=== PATIENT | female | born 1985 | race Caucasian/White ===

== ENCOUNTER 2017-11-01 21:12 | Inpatient (IN) ==
[2017-11-01] MEDS ORDERED: LACTATED RINGERS 1,000 ML IV ONE (21:47)
[2017-11-01] MEDS ORDERED: ONDANSETRON 4 MG/2 ML VIAL IV ONE (21:47)
--- NOTE | 2017-11-01 21:49 | Emergency Department Note ---
Abdominal Pain HPI - General Chief Complaint: Abdominal Pain Stated Complaint: abdominal pain Time Seen by Provider: 11/01/17 21:44 Source: patient Limitations: no limitations - History of Present Illness HPI Narrative: This patient has not had nausea vomiting diarrhea abdominal pain for last 3 days. She does not really feel flulike. She has had a lot of vomiting. Diarrhea is watery. Abdominal pain is crampy. - Related Data Home Medications Medication Instructions Recorded Confirmed Methadone [Dolophine] 5 mg PO TID 11/01/17 11/02/17 Allergies Allergy/AdvReac Type Severity Reaction Status Date / Time Penicillins Allergy Mild Rash Verified 11/02/17 06:36 Review of Systems All systems ED: reviewed and negative except as stated. Abdominal Pain PMH - Past Medical History Medical history: Reports: no medical history - Social History Smoking status: Current every day smoker Physical Exam Limitations: no limitations General appearance: alert Head: atraumatic Eye: Present: normal appearance ENT: normal exam Neck: Present: normal inspection Chest: Present: normal inspection Respiratory: Present: normal lung sounds bilaterally Cardiovascular: Present: regular rate, normal rhythm, normal heart sounds Abdominal: Present: soft, tenderness. Absent: distention, guarding Abdominal tenderness: Present: diffuse, mild Neurological: Present: alert Psychiatric: Present: normal affect, normal mood Skin: Present: warm, dry, intact Course Vital Signs Temperature 98 F 11/01/17 21:13 Pulse Rate 104 H 11/01/17 21:13 Respiratory Rate 20 11/01/17 21:13 Blood Pressure 122/85 11/01/17 21:13 Pulse Oximetry (%) 99 11/01/17 21:13 Temperature 97.4 F 11/02/17 04:00 Pulse Rate 79 11/02/17 04:00 Respiratory Rate 18 11/02/17 04:00 Blood Pressure 110/65 11/02/17 04:00 Pulse Oximetry (%) 97 11/02/17 04:00 Abdominal Pain - MDM Narrative Medical decision making narrative: Patient's gallbladder ultrasound is consistent with a calculus cholecystitis. Common bile duct was normal in size. She will be admitted to Dr. Christian Lin the surgeon. - Lab Data Lab results reviewed: Yes I reviewed the patient's lab results. Result diagrams: 11/02/17 05:00 11/01/17 21:59 Lab Results 0311/01/17 11/01/17 Range/Units 21:43 21:59 21:59 WBC 7.4 (4.5-11.0) K/mcL RBC 5.16 (4.00-5.20) M/mcL Hgb 12.9 (12.0-15.0) g/dL Hct 39.6 (36.0-48.0) % MCV 76.8 L (80.0-100.0) fL MCH 24.9 L (26.0-34.0) pg MCHC 32.5 (31.0-36.0) g/dL RDW 13.2 (11.5-14.5) % Plt Count 104 L (140-440) K/mcL MPV 9.6 (7.4-10.4) fL Gran % 33.6 L (38.0-78.0) % Lymph % (Auto) 47.4 (15.5-49.0) % [place] % (Auto) 15.1 H (1.0-12.0) % Eos % (Auto) 3.2 (0.0-7.0) % Baso % (Auto) 0.7 (0.0-2.0) % Gran # 2.5 (1.8-8.0) K/mcL Lymph # (Auto) 3.5 (1.5-4.8) K/mcL [place] # (Auto) 1.1 H (0.1-0.9) K/mcL Eos # (Auto) 0.2 (0.0-0.7) K/mcL Baso # (Auto) 0.1 (0.0-0.3) K/mcL Differential Comment (()) PT (11.9-14.5) sec INR (0.9-1.1) Sodium 131 L (133-145) mmol/L Potassium 3.2 L (3.3-5.1) mmol/L Chloride 96 (96-108) mmol/L Carbon Dioxide 23 (22-30) mmol/L Anion Gap 12.0 (8-16) BUN 6 (6-20) mg/dl Creatinine 0.7 (0.6-1.1) mg/dl GFR Calculation 114 Glucose 114 H (70-105) mg/dL Calcium 7.7 L (8.6-10.4) mg/dl Total Bilirubin 6.0 H (0.0-1.0) mg/dL AST 1420 H (0-37) U/l ALT 1865 H (0-40) U/l Alkaline Phosphatase 428 H (39-117) U/L Total Protein 6.0 (5.9-8.4) gm/dL Albumin 3.0 L (3.2-5.2) gm/dL Globulin 3.0 (2.2-3.7) gm/dL Albumin/Globulin Ratio 1.0 (1.0-2.3) Lipase 20 (7-60) U/L Urine Color [place] Urine Appearance Cloudy Urine pH 5.0 (5.0-9.0) Ur Specific [place] 1.024 (1.000-1.035) Urine Protein 100 A (NEG) mg/dL Urine Glucose (UA) 50 A (NEG) mg/dL Urine Ketones Neg (NEG) mg/dL Urine Occult Blood >=1.0 A (<0.03) mg/dL Urine Nitrate Neg (NEG) Urine Bilirubin 4.0 A (NEG) mg/dL Urine Ictotest Pos A (NEG) Urine Urobilinogen 4.0 A (NEG) mg/dL Ur Leukocyte Esterase Neg (NEG) /uL Urine RBC 27 H (0-1) /hpf Urine WBC 32 H (0-4) /hpf Ur Squamous Epith Cells 30 H (0-4) /hpf Calcium Oxalate Crystal Few A (0) /hpf Urine Bacteria Mod A (0) /hpf Urine Mucus Many A (0) /hpf Ur Culture Indicated? No Influenza A (Rapid) Influenza B (Rapid) 11/01/17 11/01/17 Range/Units 21:59 22:44 WBC (4.5-11.0) K/mcL RBC (4.00-5.20) M/mcL Hgb (12.0-15.0) g/dL Hct (36.0-48.0) % MCV (80.0-100.0) fL MCH (26.0-34.0) pg MCHC (31.0-36.0) g/dL RDW (11.5-14.5) % Plt Count (140-440) K/mcL MPV (7.4-10.4) fL Gran % (38.0-78.0) % Lymph % (Auto) (15.5-49.0) % [place] % (Auto) (1.0-12.0) % Eos % (Auto) (0.0-7.0) % Baso % (Auto) (0.0-2.0) % Gran # (1.8-8.0) K/mcL Lymph # (Auto) (1.5-4.8) K/mcL [place] # (Auto) (0.1-0.9) K/mcL Eos # (Auto) (0.0-0.7) K/mcL Baso # (Auto) (0.0-0.3) K/mcL Differential Comment (()) PT 16.5 H (11.9-14.5) sec INR 1.3 H (0.9-1.1) Sodium (133-145) mmol/L Potassium (3.3-5.1) mmol/L Chloride (96-108) mmol/L Carbon Dioxide (22-30) mmol/L Anion Gap (8-16) BUN (6-20) mg/dl Creatinine (0.6-1.1) mg/dl GFR Calculation Glucose (70-105) mg/dL Calcium (8.6-10.4) mg/dl Total Bilirubin (0.0-1.0) mg/dL AST (0-37) U/l ALT (0-40) U/l Alkaline Phosphatase (39-117) U/L Total Protein (5.9-8.4) gm/dL Albumin (3.2-5.2) gm/dL Globulin (2.2-3.7) gm/dL Albumin/Globulin Ratio (1.0-2.3) Lipase (7-60) U/L Urine Color Urine Appearance Urine pH (5.0-9.0) Ur Specific [place] (1.000-1.035) Urine Protein (NEG) mg/dL Urine Glucose (UA) (NEG) mg/dL Urine Ketones (NEG) mg/dL Urine Occult Blood (<0.03) mg/dL Urine Nitrate (NEG) Urine Bilirubin (NEG) mg/dL Urine Ictotest (NEG) Urine Urobilinogen (NEG) mg/dL Ur Leukocyte Esterase (NEG) /uL Urine RBC (0-1) /hpf Urine WBC (0-4) /hpf Ur Squamous Epith Cells (0-4) /hpf Calcium Oxalate Crystal (0) /hpf Urine Bacteria (0) /hpf Urine Mucus (0) /hpf Ur Culture Indicated? Influenza A (Rapid) Presumed negative Influenza B (Rapid) Presumed negative - Radiology Data Radiology results reviewed: Yes I reviewed the patient's radiology results. Disposition Pt seen by WINDOWS SYSTEM[employer] ENGINEER/PA only: No Clinical Impression: Cholecystitis Disposition: Xfer As Inpt ([facility]) Condition: Good
[2017-11-01] MEDS: fentaNYL 100 MCG/2 ML VIAL IV PRN (22:23)
[2017-11-01 22:25] LABS: Appearance,Urine CLOUDY; Bacteria,Urine MOD /hpf (0); Calcium Oxalate Crystals,Urine FEW /hpf (0); Color,Urine AMBER; Glucose,Urine (UA) 50 mg/dL (NEG); Ictotest,Urine POS (NEG); Leukocyte Esterase,Urine NEG /uL (NEG); Mucus,Urine MANY /hpf (0); Protein,Urine 100 mg/dL (NEG); Specific Gravity,Urine 1.024 (1.000-1.035); Urine Blood >=1.0 mg/dL (<0.03); Urine RBC 27 /hpf (0-1); Urine Squamous Epithelial Cell 30 /hpf (0-4); Urine WBC 32 /hpf (0-4)
[2017-11-01 22:56] LABS: Basophils # (Auto) 0.1 K/mcL (0.0-0.3); Basophils % (Auto) 0.7 % (0.0-2.0); Eosinophils # (Auto) 0.2 K/mcL (0.0-0.7); Eosinophils % (Auto) 3.2 % (0.0-7.0); Granulocytes % (Auto) 33.6 % (38.0-78.0); Lymphocytes # (Auto) 3.5 K/mcL (1.5-4.8); Lymphocytes % (Auto) 47.4 % (15.5-49.0); Mean Cell Volume 76.8 fL (80.0-100.0); Mean Corpuscular HGB Conc 32.5 g/dL (31.0-36.0); Mean Corpuscular Hemoglobin 24.9 pg (26.0-34.0); Monocytes # (Auto) 1.1 K/mcL (0.1-0.9); Monocytes % (Auto) 15.1 % (1.0-12.0); Platelet Count 104 K/mcL (140-440); RBC 5.16 M/mcL (4.00-5.20); Red Cell Distribution Width 13.2 % (11.5-14.5)
[2017-11-01 23:15] LABS: Alkaline Phosphatase 428 U/L (39-117); Blood Urea Nitrogen 6 mg/dl (6-20); Lipase 20 U/L (7-60)
[2017-11-01 23:25] LABS: ALT/SGPT 1865 U/l (0-40)
[2017-11-02] MEDS: fentaNYL 100 MCG/2 ML VIAL IV PRN
[2017-11-02] MEDS ORDERED: ONDANSETRON 4 MG/2 ML VIAL IV PRN (01:36)
[2017-11-02] MEDS: LACTATED RINGERS 1,000 ML IV SCH ×2 (02:42→08:52)
[2017-11-02] MEDS ORDERED: HYDROmorphone 2 MG/ML VIAL ONE ×2 (03:18→06:11)
[2017-11-02] MEDS ORDERED: LEVOFLOXACIN 750 MG/150 ML BAG IV ONE (03:23)
[2017-11-02] MEDS: LEVOFLOXACIN 750 MG/150 ML BAG IV SCH (04:02)
--- NOTE | 2017-11-02 06:11 | Ultrasound Report ---
CLINICAL INFORMATION: Abdominal pain. Elevated bilirubin COMPARISON: Abdominal CT from 02/03/2017. FINDINGS: Liver is normal in size, configuration and echotexture without focal lesion. There is massive diffuse thickening (19 mm) of the gallbladder wall, with focal tenderness or pericholecystic fluid. No stones identified. Common bile duct is normal - 4 mm. Pancreas is unremarkable. No free fluid IMPRESSION: Severe acalculous cholecystitis Interpreted and Authenticated by: Ziggy Asher 11/02/17
--- NOTE | 2017-11-02 06:21 | XRay Report ---
CLINICAL INFORMATION: Preop COMPARISON: None. FINDINGS: The heart size, mediastinum and pulmonary vessels are unremarkable. The lungs are clear. There are no effusions. The bones and soft tissues are within normal limits. IMPRESSION: Normal chest. Interpreted and Authenticated by: Ziggy Asher 11/02/17
[2017-11-02 06:40] LABS: Basophils # (Auto) 0 K/mcL (0.0-0.3); Basophils % (Auto) 0.7 % (0.0-2.0); Eosinophils # (Auto) 0.4 K/mcL (0.0-0.7); Eosinophils % (Auto) 5.8 % (0.0-7.0); Granulocytes % (Auto) 29.9 % (38.0-78.0); Lymphocytes # (Auto) 3.3 K/mcL (1.5-4.8); Lymphocytes % (Auto) 50.6 % (15.5-49.0); Mean Cell Volume 77.7 fL (80.0-100.0); Mean Corpuscular HGB Conc 34.7 g/dL (31.0-36.0); Mean Corpuscular Hemoglobin 26.9 pg (26.0-34.0); Monocytes # (Auto) 0.8 K/mcL (0.1-0.9); Platelet Count 88 K/mcL (140-440); RBC 4.71 M/mcL (4.00-5.20); Red Cell Distribution Width 14.4 % (11.5-14.5)
[2017-11-02 07:04] LABS: Albumin 2.6 gm/dL (3.2-5.2); Albumin/Globulin Ratio 0.9 (1.0-2.3); Alkaline Phosphatase 376 U/L (39-117); Bilirubin,Direct 4.3 mg/dL (0.0-0.3); Blood Urea Nitrogen 5 mg/dl (6-20); Gamma Glutamyl Transpeptidase 165 U/L (5-36); Uric Acid 3.7 mg/dL (2.5-8.0)
[2017-11-02 07:18] LABS: ALT/SGPT 1675 U/l (0-40)
[2017-11-02] MEDS: HYDROmorphone 2 MG/ML VIAL IV PRN ×5 (08:53→22:21)
--- NOTE | 2017-11-02 09:28 | General Surg History&Physical ---
History of Present Illness Patient information: Note initiated : 11/02/17 at 9:24 am Service Date, if different from initiated Date: [] Patient: Lori Rabago 32 y/o F admitted on 11/02/17 for abdominal pain. Chief Complaint: [Abdominal pain nausea and vomiting] HPI: Ms. Rabago is a 32 year old F who presents with a 5 day history of pain in her upper abdomen. This is primarily epigastrium and right upper quadrant.. She had some diarrhea. She states that she had large volume of emesis 7 or 8 times during the night. She has noticed that her urine has been dark for the past 5 days. Her stool color has been normal and she specifically denies light colored based stools. She has not had similar discomfort in the past. When seen in the emergency room she had a tender rigid abdomen with an ultrasound that shows marked thickening of the gallbladder with pericholecystic fluid. There were no stones noted. Her LFTs are also significantly elevated with transaminases being elevated out of proportion to the alkaline phosphatase suggesting that she may have some primary liver disease. Her bilirubin is 6. Ultrasound suggests that her common bile duct is only 4 mm and her lipase is normal. Patient initially denied drug use but then with further questioning she admits to a prior history of heroin use and more recent history of amphetamine. Use. She is presently on maintenance methadone. Review of Systems - Constitutional anorexia, fatigue - EENT Nose, mouth and throat: bleeding gums, dental pain, mouth lesions - Cardiovascular no chest pain with activity, no dyspnea on exertion, no irregular heart rhythm, no paroxysmal nocturnal dyspnea, no rapid heart rate - Respiratory no cough, no dyspnea on exertion, no wheezing, no pain with cough - Gastrointestinal abdominal pain, bloating, heartburn, nausea, vomiting - Genitourinary Genitourinary: no dysuria, no pelvic pain, no urinary frequency, no urinary hesitancy, no urinary incontinence - Musculoskeletal no arthralgias, no numbness, no stiffness - Integumentary other (Multiple skin tracks with extremities), no pruritus, no rash - Neurological no convulsions, no dizziness, no headache(s), no numbness, no tingling, no weakness - Psychiatric no anxiety, no depression, no panic attacks - Endocrine no fatigue, no palpitations - Hematologic/Lymphatic no easy bleeding, no easy bruising, no lymphadenopathy - Allergic/Immunologic no tongue swelling, no throat swelling, no uticaria, no wheezing, no lip swelling Past History Past medical history: No chronic medical illness Past surgical history: Denies having any prior surgical procedure Past family history: Mother age 66 healthy Father age 55 with hypertension Past social history: single Unemployed Tobacco 1/2-1 pack per day cigarettes Alcohol denies recent use Drugs prior history of heroin use and more recent history of meth amphetamine use Presently on methadone Medications and Allergies Home Medications Medication Instructions Recorded Confirmed Type Methadone [Dolophine] 5 mg PO TID 11/01/17 11/02/17 History Allergies Allergy/AdvReac Type Severity Reaction Status Date / Time Amoxicillin Allergy Mild Rash Verified 11/02/17 08:55 Penicillins Allergy Mild Rash Verified 11/02/17 06:36 Exam Temp Pulse Resp BP Pulse Ox 98.1 F 73 18 103/65 97 11/02/17 07:48 11/02/17 07:48 11/02/17 07:48 11/02/17 07:48 11/02/17 07:48 - General physical appearance well developed, well nourished, no distress, cachectic, chronically ill - Eyes PERRL, normal ocular movement, icteric (Clinical jaundice) - ENT normal pinna, normal nares, normal mucosa, no hearing loss, no congestion, poor intermediate (Extremely severe carious teeth with gingivitis) - Head Head exam IM: Present: atraumatic, normal inspection, normocephalic - Neck no masses, no bruits, trachea midline, no lymphadectomy, no venous distension - Cardiovascular Cardiovascular exam IM: Present: normal rate and rhythm - Respiratory normal expansion, normal respiratory effort, clear to percussion, clear to auscultation - Abdomen Abdomen: Present: soft, tender (Epigastric and right upper quadrant tenderness; Palpable mass right upper quadrant), bowel sounds, masses Hernia: Present: none - Genitourinary Present: normal external genitalia - Integumentary Present: no rash, no growths, no abnormal pigmentation, other (Definitive needle tracks of upper extremity) - Neurologic Present: normal coordination, normal sensation - Musculoskeletal Present: normal gait, normal posture - Psychiatric Present: oriented to time, oriented to person, oriented to place, speech is normal, memory intact Assessment and Plan (1) Acute acalculous cholecystitis MRCP to rule out common bile duct stone Status: Acute (2) Hepatitis hepatitis screen for A, B, and C Status: Acute (3) History of abuse of recreational drug Monitor closely for possible drug withdrawal Status: Acute
[2017-11-02] MEDS: NICOTINE 21 MG PATCH TOPICAL SCH (09:53)
[2017-11-02] MEDS: 0.9 % SODIUM CHLORIDE 1,000 ML IV SCH ×3 (09:53→17:54)
[2017-11-02 10:36] LABS: Amphetamine Screen,Urine SUSPECT POSITIVE (NONDETECTED); Benzodiazepines Screen,Urine SUSPECT POSITIVE (NONDETECTED); Cocaine Screen,Urine NONE DETECTED (NONDETECTED); Opiate Screen,Urine SUSPECT POSITIVE (NONDETECTED); Oxycodone, Urine Screen NONE DETECTED (NONDETECTED)
[2017-11-02 10:37] LABS: Appearance,Urine CLEAR; Bacteria,Urine 0 /hpf (0); Bilirubin,Urine POS (NEG); Color,Urine AMBER; Glucose,Urine (UA) NEGATIVE (NEG); Ictotest,Urine POS (NEG); Leukocyte Esterase,Urine NEG /uL (NEG); Mucus,Urine FEW /hpf (0); Protein,Urine NEG (NEG); Urine Blood NEG mg/dL (<0.03); Urine RBC < 1 /hpf (0-1); Urine Squamous Epithelial Cell < 1 /hpf (0-4); Urine Transitional Epi Cells < 1 /hpf (0-2); Urine WBC 3 /hpf (0-4)
[2017-11-02 11:51] LABS: Hepatitis A Antibody IgM NON REACTIVE (NEGATIVE); Hepatitis B Core IgM NON REACTIVE (NEGATIVE); Hepatitis B Surface Antigen NEGATIVE (NEGATIVE); Hepatitis C Virus Antibody REACTIVE (NEGATIVE)
--- NOTE | 2017-11-02 17:49 | Magnetic Resonance Report ---
CLINICAL INFORMATION: Elevated bilirubin and acute right upper quadrant pain COMPARISON: None. TECHNIQUE: MRCP was performed using 3D FRFSE respiratory triggered and single-shot FSE thick slab technique. Axial T2 SSFSE and coronal SSFSE images were obtained through the upper abdomen as well. FINDINGS: The gallbladder wall demonstrates massive diffuse thickening up to 15 mm. It is homogeneous high signal. No stones identified. The intrahepatic, common hepatic and common bile ducts are normal caliber: CBD is 4 mm. Mild periportal edema is appreciated and the liver is mildly enlarged, but the signal of the liver is otherwise normal. Spleen is moderately enlarged: 19 x 12 x 8 cm. Small amount of ascites appreciated the perihepatic and perisplenic regions. Mild varices in the perisplenic region, but none in the paraesophageal or para gastric regions. Both kidneys, adrenal glands and pancreas are normal. IMPRESSION: 1. Massive diffuse gallbladder wall thickening - no stones. Diagnostic considerations include severe acalculous cholecystitis, xanthogranulomatous cholecystitis, gallbladder carcinoma and adenomyomatosis. The gallbladder wall can be secondarily inflamed from adjacent hepatitis, but it typically only mildly thickened. 2. Mild periportal edema almost certainly related to primary hepatic inflammation. 3. Moderate splenomegaly. This could be related to portal hypertension from developing cirrhosis. It may also represent infection (viral - including HIV, bacterial and fungal) leukemia/lymphoma or collagen vascular process (lupus, sarcoidosis, rheumatoid arthritis etc.) Pathologic examination of the gallbladder after resection and tissue from intraoperative liver biopsy will be helpful in narrowing the diagnostic possibilities. Consider HIV and Monospot testing Interpreted and Authenticated by: Ziggy Asher 11/02/17
--- NOTE | 2017-11-02 17:55 | General Surgery Progress Note ---
Subjective Patient reports: feels better, still having pain, tolerating liquids well, flatus, no bowel movement (Is), afebrile Narrative: Note initiated : 11/02/17 at 5:55 pm Service Date, if different from initiated Date: [] Patient: Lori Rabago 32 y/o F admitted on 11/02/17 for abdominal pain. Chief Complaint: [Patient feels better but she still has epigastric and right upper quadrant pain. She has not had nausea or vomiting and has tolerated liquids. Her hepatitis screen is positive for hepatitis C antibodies. Urine drug screen is positive for methamphetamine but negative for THC cocaine and meth. Discussed this with the patient and an HIV screening will be done. Discussed with her the need for cholecystectomy with liver biopsy and this will be done tomorrow] Objective Temp Pulse Resp BP Pulse Ox 97.5 F 86 18 120/74 98 11/02/17 16:00 11/02/17 16:00 11/02/17 16:00 11/02/17 16:00 11/02/17 16:00 - Additional Data Intake & Output - Last 24 hours: Intake & Output 10/31/17 11/01/17 11/02/17 11/03/17 05:59 05:59 05:59 05:59 Intake Total 1150 / 1150 3080 / 3080 Output Total 650 / 650 270 / 270 Balance 500 / 500 2810 / 2810 Weight 128 lb - General physical appearance well developed, well nourished, moderate distress, severe distress, moderate pain - Eyes PERRL, normal ocular movement, icteric - ENT normal pinna, normal nares, normal mucosa, no hearing loss, no congestion - Neck no masses, no bruits, trachea midline, no lymphadectomy, no venous distension - Respiratory normal expansion, normal respiratory effort, clear to percussion, clear to auscultation - Cardiovascular Cardiovascular exam: Present: normal rate and rhythm, RRR, +S1, +S2. Absent: JVD, tachycardia - Abdomen tender (Tender epigastrium and right upper quadrant with the mass-effect and right upper quadrant with associated guarding), bowel sounds (present), surgical scars (none), masses (none) - Integumentary no rash, no growths, no abnormal pigmentation - Neurologic normal coordination, normal sensation - Musculoskeletal normal gait, normal posture - Psychiatric oriented to time, oriented to person, oriented to place, speech is normal, memory intact - Labs 11/02/17 05:00 11/02/17 05:00 Diabetes panel 11/01/17 11/02/17 Range/Units 21:59 05:00 Sodium 131 L 135 (133-145) mmol/L Potassium 3.2 L 3.8 (3.3-5.1) mmol/L Chloride 96 101 (96-108) mmol/L Carbon Dioxide 23 22 (22-30) mmol/L BUN 6 5 L (6-20) mg/dl Creatinine 0.7 0.6 (0.6-1.1) mg/dl Glucose 114 H 102 (70-105) mg/dL Calcium 7.7 L 7.6 L (8.6-10.4) mg/dl AST 1420 H 1398 H (0-37) U/l ALT 1865 H 1675 H (0-40) U/l Alkaline Phosphatase 428 H 376 H (39-117) U/L Total Protein 6.0 5.5 L (5.9-8.4) gm/dL Albumin 3.0 L 2.6 L (3.2-5.2) gm/dL Triglycerides 143 (<150) mg/dl Calcium panel 11/01/17 11/02/17 Range/Units 21:59 05:00 Calcium 7.7 L 7.6 L (8.6-10.4) mg/dl Phosphorus 2.9 (2.7-4.5) mg/dL Albumin 3.0 L 2.6 L (3.2-5.2) gm/dL Pituitary panel 11/01/17 11/02/17 Range/Units 21:59 05:00 Sodium 131 L 135 (133-145) mmol/L Potassium 3.2 L 3.8 (3.3-5.1) mmol/L Chloride 96 101 (96-108) mmol/L Carbon Dioxide 23 22 (22-30) mmol/L BUN 6 5 L (6-20) mg/dl Creatinine 0.7 0.6 (0.6-1.1) mg/dl Glucose 114 H 102 (70-105) mg/dL Calcium 7.7 L 7.6 L (8.6-10.4) mg/dl Adrenal panel 03/28/18 03/29/18 Range/Units 21:59 05:00 Sodium 131 L 135 (133-145) mmol/L Potassium 3.2 L 3.8 (3.3-5.1) mmol/L Chloride 96 101 (96-108) mmol/L Carbon Dioxide 23 22 (22-30) mmol/L BUN 6 5 L (6-20) mg/dl Creatinine 0.7 0.6 (0.6-1.1) mg/dl Glucose 114 H 102 (70-105) mg/dL Calcium 7.7 L 7.6 L (8.6-10.4) mg/dl Total Bilirubin 6.0 H 5.8 H (0.0-1.0) mg/dL AST 1420 H 1398 H (0-37) U/l ALT 1865 H 1675 H (0-40) U/l Alkaline Phosphatase 428 H 376 H (39-117) U/L Total Protein 6.0 5.5 L (5.9-8.4) gm/dL Albumin 3.0 L 2.6 L (3.2-5.2) gm/dL Assessment and Plan (1) Acute acalculous cholecystitis Status: Acute Assessment and plan: Schedule for laparoscopic cholecystectomy in the morning Current Visit: Yes (2) Hepatitis Status: Acute Assessment and plan: Hepatitis C is positive We will do liver biopsy is doing laparoscopic cholecystectomy Current Visit: Yes (3) History of abuse of recreational drug Status: Acute Assessment and plan: Drug screen is positive for methamphetamine Current Visit: Yes - Time Spent With Patient Total time spent is greater than 50% in coordination of care (as documented) at patient's floor/unit and/or counseling patient:
[2017-11-03] MEDS: HYDROmorphone 2 MG/ML VIAL IV PRN ×7 (00:45→21:42)
[2017-11-03] MEDS: 0.9 % SODIUM CHLORIDE 1,000 ML IV SCH ×4 (01:35→17:23)
[2017-11-03 05:32] LABS: Basophils # (Auto) 0 K/mcL (0.0-0.3); Basophils % (Auto) 0.7 % (0.0-2.0); Eosinophils # (Auto) 0.5 K/mcL (0.0-0.7); Eosinophils % (Auto) 7.7 % (0.0-7.0); Granulocytes % (Auto) 26.7 % (38.0-78.0); Lymphocytes # (Auto) 3.2 K/mcL (1.5-4.8); Lymphocytes % (Auto) 53.3 % (15.5-49.0); Mean Corpuscular HGB Conc 34.1 g/dL (31.0-36.0); Mean Corpuscular Hemoglobin 26.6 pg (26.0-34.0); Monocytes # (Auto) 0.7 K/mcL (0.1-0.9); Monocytes % (Auto) 11.6 % (1.0-12.0); Platelet Count 110 K/mcL (140-440); RBC 4.81 M/mcL (4.00-5.20); Red Cell Distribution Width 14.6 % (11.5-14.5)
[2017-11-03 06:23] LABS: ALT/SGPT 1501 U/l (0-40); Albumin 2.5 gm/dL (3.2-5.2); Albumin/Globulin Ratio 0.8 (1.0-2.3); Alkaline Phosphatase 342 U/L (39-117); Bilirubin,Direct 4.9 mg/dL (0.0-0.3); Blood Urea Nitrogen 3 mg/dl (6-20); Gamma Glutamyl Transpeptidase 139 U/L (5-36); Uric Acid 3.9 mg/dL (2.5-8.0)
[2017-11-03] MEDS ORDERED: GLYCOPYRROLATE 0.2 MG/ML VIAL IV ONE (09:15)
[2017-11-03] MEDS ORDERED: MIDAZOLAM 2 MG/2 ML VIAL IV ONE (09:15)
[2017-11-03] MEDS ORDERED: fentaNYL 250 MCG/5 ML VIAL IV ONE (09:15)
[2017-11-03] MEDS ORDERED: PROPOFOL 200 MG/20 ML VIAL IV ONE (09:15)
[2017-11-03] MEDS ORDERED: LIDOCAINE HCL/PF 100 MG/5 ML SYRINGE IV ONE (09:15)
[2017-11-03] MEDS ORDERED: ONDANSETRON 4 MG/2 ML VIAL IV ONE (09:15)
[2017-11-03] MEDS ORDERED: ROCURONIUM 10 MG/ML ML IV ONE (09:15)
[2017-11-03] MEDS ORDERED: TRANEXAMIC ACID 1,000 MG/10 ML VIAL IV ONE (09:15)
[2017-11-03] MEDS ORDERED: DEXAMETHASONE 10 MG/ML VIAL IV ONE (09:15)
[2017-11-03] MEDS ORDERED: KETAMINE 100 MG/ML ML IV ONE (09:15)
[2017-11-03] MEDS ORDERED: SUCCINYLCHOLINE 20 MG/ML ML IV ONE (09:15)
[2017-11-03] MEDS ORDERED: HYDROmorphone 2 MG/ML VIAL IV ONE (09:15)
[2017-11-03] MEDS: LEVOFLOXACIN 750 MG/150 ML BAG IV SCH (09:38)
[2017-11-03] MEDS ORDERED: fentaNYL 100 MCG/2 ML VIAL IV PRN (10:00)
[2017-11-03] MEDS ORDERED: ONDANSETRON 4 MG/2 ML VIAL IV PRN ×2 (10:00→10:59)
[2017-11-03] MEDS ORDERED: PROMETHAZINE 25 MG/ML VIAL IV PRN (10:00)
[2017-11-03] MEDS ORDERED: LACTATED RINGERS 1,000 ML IV SCH (10:00)
[2017-11-03] MEDS ORDERED: IPRATROPIUM/ALBUTEROL 3 ML AMPUL.NEB NEB PRN (10:00)
--- NOTE | 2017-11-03 10:19 | Brief Operative Note ---
Date of procedure: 11/03/17 Pre-op diagnosis: acalculous cholecystitis;hepatitis Post-op diagnosis: other (acalculous cholecystitis;hepatitis with early ascites) Procedure: laparoscopic cholecystectomy and liver biopsy Grafts/Implants: No Anesthesia: GETA Findings: edematous ,dilated gallbladder; early ascites Complications: none Surgeon: Rah Lin Estimated blood loss (cc): 10 Specimens Removed/Pathology: other (gallbladder; liver biopsy cores x2) Condition: stable Disposition: PACU
[2017-11-03] MEDS ORDERED: NICOTINE 21 MG PATCH TOPICAL ONE (12:30)
[2017-11-03] MEDS: NICOTINE 21 MG PATCH TOPICAL SCH (12:56)
[2017-11-04] MEDS: 0.9 % SODIUM CHLORIDE 1,000 ML IV SCH ×5 (00:30→22:56)
[2017-11-04] MEDS: HYDROmorphone 2 MG/ML VIAL IV PRN ×7 (00:31→18:07)
[2017-11-04 05:49] LABS: Basophils # (Auto) 0 K/mcL (0.0-0.3); Basophils % (Auto) 0.1 % (0.0-2.0); Eosinophils # (Auto) 0.3 K/mcL (0.0-0.7); Eosinophils % (Auto) 2.8 % (0.0-7.0); Granulocytes % (Auto) 74.4 % (38.0-78.0); Lymphocytes # (Auto) 1.8 K/mcL (1.5-4.8); Lymphocytes % (Auto) 15.6 % (15.5-49.0); Mean Cell Volume 78.3 fL (80.0-100.0); Mean Corpuscular HGB Conc 33.9 g/dL (31.0-36.0); Mean Corpuscular Hemoglobin 26.6 pg (26.0-34.0); Monocytes # (Auto) 0.8 K/mcL (0.1-0.9); Monocytes % (Auto) 7.1 % (1.0-12.0); Platelet Count 151 K/mcL (140-440); RBC 4.79 M/mcL (4.00-5.20); Red Cell Distribution Width 15.2 % (11.5-14.5)
[2017-11-04 06:20] LABS: Albumin 2.5 gm/dL (3.2-5.2); Albumin/Globulin Ratio 0.7 (1.0-2.3); Alkaline Phosphatase 340 U/L (39-117); Bilirubin,Direct 3.2 mg/dL (0.0-0.3); Blood Urea Nitrogen 6 mg/dl (6-20); Gamma Glutamyl Transpeptidase 130 U/L (5-36); Uric Acid 3.3 mg/dL (2.5-8.0)
[2017-11-04 06:39] LABS: ALT/SGPT 1111 U/l (0-40)
[2017-11-04] MEDS: LEVOFLOXACIN 750 MG/150 ML BAG IV SCH (08:13)
[2017-11-04] MEDS: NICOTINE 21 MG PATCH TOPICAL SCH (09:58)
--- NOTE | 2017-11-04 14:07 | General Surgery Progress Note ---
Subjective Patient reports: feels better, pain is less, tolerating a regular diet, flatus, no bowel movement, afebrile Narrative: Note initiated : 11/04/17 at 2:05 pm Service Date, if different from initiated Date: [] Patient: Lori Rabago 32 y/o F admitted on 11/02/17 for Abdominal Pain/ Cholecystitis, Hepatitis C. Chief Complaint: [Patient is feeling better. She does have some incisional pain but the deep visceral pain that she had preoperatively has resolved. She is tolerating a regular diet without difficulty. She is afebrile but her white blood count is elevated. Her liver transaminases are slightly down. She has not had nausea vomiting or diarrhea] Objective Temp Pulse Resp BP Pulse Ox 98 F 88 16 120/68 97 11/04/17 12:00 11/04/17 04:00 11/04/17 12:00 11/04/17 12:00 11/04/17 12:00 - Additional Data Intake & Output - Last 24 hours: Intake & Output 11/02/17 11/03/17 11/04/17 11/05/17 05:59 05:59 05:59 05:59 Intake Total 1150 / 1150 5700 / 5700 6195 / 6195 2109 / 2109 Output Total 650 / 650 2120 / 2120 4580 / 4580 Balance 500 / 500 3580 / 3580 1615 / 1615 2109 / 2109 Weight 128 lb 131 lb 8 oz 131 lb 8 oz 131 lb 8 oz - General physical appearance well developed, well nourished, no distress, severe distress - ENT normal pinna, normal nares, normal mucosa, no hearing loss, no congestion, poor [facility], other (Severe gingivitis) - Neck no masses, no bruits, trachea midline, no lymphadectomy, no venous distension - Respiratory normal expansion, normal respiratory effort, clear to auscultation - Cardiovascular Cardiovascular exam: Present: normal rate and rhythm, RRR, +S1, +S2. Absent: JVD - Abdomen tender (Mild tenderness around vandana and port site; good active bowel sounds) , bowel sounds (present), surgical scars (none), masses (none) - Integumentary no rash, no growths, no abnormal pigmentation - Neurologic normal coordination, normal sensation - Musculoskeletal normal gait, normal posture - Psychiatric oriented to time, oriented to person, oriented to place, speech is normal, memory intact - Labs 11/04/17 05:00 11/04/17 05:00 Diabetes panel 11/04/17 Range/Units 05:00 Sodium 135 (133-145) mmol/L Potassium 3.9 (3.3-5.1) mmol/L Chloride 101 (96-108) mmol/L Carbon Dioxide 23 (22-30) mmol/L BUN 6 (6-20) mg/dl Creatinine 0.7 (0.6-1.1) mg/dl Glucose 169 H (70-105) mg/dL Calcium 7.9 L (8.6-10.4) mg/dl AST 466 H (0-37) U/l ALT 1111 H (0-40) U/l Alkaline Phosphatase 340 H (39-117) U/L Total Protein 6.3 (5.9-8.4) gm/dL Albumin 2.5 L (3.2-5.2) gm/dL Triglycerides 266 H (<150) mg/dl Calcium panel 11/04/17 Range/Units 05:00 Calcium 7.9 L (8.6-10.4) mg/dl Phosphorus 3.6 (2.7-4.5) mg/dL Albumin 2.5 L (3.2-5.2) gm/dL Pituitary panel 11/04/17 Range/Units 05:00 Sodium 135 (133-145) mmol/L Potassium 3.9 (3.3-5.1) mmol/L Chloride 101 (96-108) mmol/L Carbon Dioxide 23 (22-30) mmol/L BUN 6 (6-20) mg/dl Creatinine 0.7 (0.6-1.1) mg/dl Glucose 169 H (70-105) mg/dL Calcium 7.9 L (8.6-10.4) mg/dl Adrenal panel 11/04/17 Range/Units 05:00 Sodium 135 (133-145) mmol/L Potassium 3.9 (3.3-5.1) mmol/L Chloride 101 (96-108) mmol/L Carbon Dioxide 23 (22-30) mmol/L BUN 6 (6-20) mg/dl Creatinine 0.7 (0.6-1.1) mg/dl Glucose 169 H (70-105) mg/dL Calcium 7.9 L (8.6-10.4) mg/dl Total Bilirubin 4.7 H (0.0-1.0) mg/dL AST 466 H (0-37) U/l ALT 1111 H (0-40) U/l Alkaline Phosphatase 340 H (39-117) U/L Total Protein 6.3 (5.9-8.4) gm/dL Albumin 2.5 L (3.2-5.2) gm/dL Assessment and Plan (1) Acute acalculous cholecystitis Status: Acute Assessment and plan: Stable postoperative day #1 Current Visit: Yes (2) Hepatitis Status: Acute Assessment and plan: Hepatitis C is positive Liver transaminases are slightly down Current Visit: Yes (3) History of abuse of recreational drug Status: Acute Assessment and plan: Discussed need for inpatient rehab and detox but she is not agreeable at this time Current Visit: Yes - Time Spent With Patient Total time spent is greater than 50% in coordination of care (as documented) at patient's floor/unit and/or counseling patient:
[2017-11-04] MEDS ORDERED: oxyCODONE/APAP 10/325MG TABLET PO ONE (19:09)
[2017-11-04] MEDS: oxyCODONE/APAP 10/325MG TABLET PO PRN (23:21)
[2017-11-05] MEDS: 0.9 % SODIUM CHLORIDE 1,000 ML IV SCH ×3 (03:25→10:57)
[2017-11-05] MEDS: oxyCODONE/APAP 10/325MG TABLET PO PRN ×3 (04:34→12:41)
[2017-11-05 05:50] LABS: Basophils # (Auto) 0 K/mcL (0.0-0.3); Basophils % (Auto) 0.5 % (0.0-2.0); Eosinophils # (Auto) 0.2 K/mcL (0.0-0.7); Eosinophils % (Auto) 2.1 % (0.0-7.0); Granulocytes % (Auto) 42.9 % (38.0-78.0); Lymphocytes # (Auto) 3.3 K/mcL (1.5-4.8); Lymphocytes % (Auto) 46.2 % (15.5-49.0); Mean Cell Volume 78.4 fL (80.0-100.0); Mean Corpuscular HGB Conc 33.7 g/dL (31.0-36.0); Mean Corpuscular Hemoglobin 26.4 pg (26.0-34.0); Monocytes # (Auto) 0.6 K/mcL (0.1-0.9); Monocytes % (Auto) 8.3 % (1.0-12.0); Platelet Count 133 K/mcL (140-440); RBC 4.37 M/mcL (4.00-5.20); Red Cell Distribution Width 15.4 % (11.5-14.5)
[2017-11-05 06:11] LABS: ALT/SGPT 678 U/l (0-40); Albumin 2.4 gm/dL (3.2-5.2); Albumin/Globulin Ratio 0.7 (1.0-2.3); Alkaline Phosphatase 280 U/L (39-117); Bilirubin,Direct 1.1 mg/dL (0.0-0.3); Blood Urea Nitrogen 6 mg/dl (6-20); Gamma Glutamyl Transpeptidase 109 U/L (5-36); Uric Acid 2.7 mg/dL (2.5-8.0)
[2017-11-05] MEDS: LEVOFLOXACIN 750 MG/150 ML BAG IV SCH (08:22)
[2017-11-05] MEDS: NICOTINE 21 MG PATCH TOPICAL SCH (08:25)
--- NOTE | 2017-11-05 14:02 | Discharge Summary ---
Providers - Providers Patient information: Note initiated : 11/05/17 at 2:00 pm Service Date, if different from initiated Date: [] Patient: Lori Rabago 32 y/o F admitted on 11/02/17 for Abdominal Pain/ Cholecystitis, Hepatitis C. Chief Complaint: [] Date of admission: 11/02/17 Discharge date: 11/05/17 Attending physician: Rah Lin Hospitalization Hospital course: 32-year-old female admitted on 02 November with complaint of epigastric and right upper quadrant pain. She presented with a 5 day history of pain in her upper abdomen. She had emesis up to 8 times during the night prior to admission. She noted dark urine. When seen in the emergency room she had a tender rigid abdomen and ultrasound showed marked thickening of the gallbladder with pericholecystic fluid. She did not have stones. Her liver panel shows significantly elevated transaminases out of proportion to her alkaline phosphatase suggesting that she may have primary liver disease also. Her common bile duct was normal at 4 mm and her amylase amylase and lipase were normal. "Close questioning revealed that she has a prior history of heroin use and more recent history of amphetamine use. She has been on maintenance methadone. Hepatitis panel revealed positive hepatitis C. The patient was counseled for cholecystectomy which was done on October. She had a severely inflamed edematous gallbladder and she had early severe fatty infiltration of the liver. She had significant ascites also. In addition to cholecystectomy liver biopsies were done. The patient has improved over the past 2 days. Her transaminases are trending down. Her bilirubin is also improved. She is tolerating a regular diet and has none of her preoperative symptoms. She has been offered inpatient rehabilitation and she refuses. She is discharged in the care of her father and will follow up with Dr. Denis in the office on 20 November. I will see her back in the office on 04 December to make final arrangements concerning her hepatitis C. She is discharged in stable satisfactory condition Discharge diagnosis: Acute acalculous cholecystitis Secondary discharge diagnosis: Hepatitis C History of heroin and methamphetamine use Reason for admission: Abdominal pain nausea and vomiting Procedures: Laparoscopic cholecystectomy Liver biopsy Pertinent studies/significant findings: MRCP Upper abdominal ultrasound Complications: None Exam Temp Pulse Resp BP Pulse Ox 97.4 F 76 16 119/71 95 11/05/17 08:00 11/05/17 08:00 11/05/17 08:00 11/05/17 08:00 11/05/17 08:00 - General physical appearance well developed, well nourished, no distress - Eyes PERRL, normal ocular movement - ENT normal pinna, normal nares, normal mucosa, no hearing loss, no congestion, poor penitentiary (Severe infected cavitated teeth with severe gingivitis), other - Head Head exam IM: Present: atraumatic, normocephalic - Neck no masses, no bruits, trachea midline, no lymphadectomy, no venous distension - Cardiovascular Cardiovascular exam IM: Present: normal rate and rhythm - Respiratory normal expansion, normal respiratory effort, clear to percussion, clear to auscultation - Abdomen Abdomen: Present: soft, tender (Mild tenderness around staple lines otherwise exam is unremarkable), bowel sounds Hernia: Present: none - Genitourinary Present: normal external genitalia - Integumentary Present: no rash, no growths, no abnormal pigmentation - Neurologic Present: normal coordination, normal sensation - Musculoskeletal Present: normal gait, normal posture - Psychiatric Present: oriented to time, oriented to person, oriented to place, speech is normal, memory intact Discharge Plan - Patient/Caregiver Discharge Instructions Activity: increase activity as tolerated Diet: Regular Diet Additional Instructions: Follow-up in the office on [address] Denis Follow-up in the office with me on 04 December for final evaluation Prescriptions: oxyCODONE/APAP [Percocet 10-325Mg] 1 tab PO Q4-6HP PRN #30 tab PRN Reason: Pain Level > 6 - Follow up Plan Follow up with: Oscar Pinedo [Primary Care Provider] - Rah Lin MD [Physician] - 11/16/17 9:15 am Disposition: Home, Self-Care Prognosis: Good Rehab Potential: Good I certify that the patient requires SNF services.: No Overall status at discharge: patient is not back to baseline Pending Studies Resuscitation Status Full Code Diet Regular Diet Start MonNov 037 Hydromorphone HCl (Dilaudid) 1 mg IV Q2HP PRN PRN Reason: PAIN LEVEL > 6 Last Admin: 11/04/17 18:07 Dose: 1 mg Admin: 11/04/17 14:39 Dose: 1 mg Admin: 11/04/17 12:56 Dose: 1 mg Admin: 11/04/17 10:56 Dose: 1 mg Admin: 11/04/17 08:13 Dose: 1 mg Admin: 11/04/17 03:53 Dose: 1 mg Admin: 11/04/17 00:31 Dose: 1 mg Admin: 11/03/17 21:42 Dose: 1 mg Admin: 11/03/17 19:33 Dose: 1 mg Admin: 11/03/17 16:31 Dose: 1 mg Levofloxacin (Levaquin) 750 mg in 150 mls @ 100 mls/hr IV DAILY JANEE Last Infusion: 11/05/17 09:52 Dose: 0 mls/hr Admin: 11/05/17 08:22 Dose: 100 mls/hr Infusion: 11/04/17 09:32 Dose: 0 mls/hr Admin: 11/04/17 08:13 Dose: 100 mls/hr Sodium Chloride (Sodium Chloride 0.9%) 1,000 mls @ 150 mls/hr IV .Q6H40M JANEE Last Admin: 11/05/17 10:57 Dose: Not Given Infusion: 11/05/17 10:57 Dose: 0 mls/hr Admin: 11/05/17 06:19 Dose: 150 mls/hr Infusion: 11/05/17 06:18 Dose: 150 mls/hr Admin: 11/05/17 03:25 Dose: Not Given Admin: 11/04/17 22:56 Dose: 150 mls/hr Infusion: 11/04/17 22:56 Dose: 150 mls/hr Admin: 11/04/17 15:31 Dose: 150 mls/hr Infusion: 11/04/17 14:54 Dose: 0 mls/hr Admin: 11/04/17 14:42 Dose: Not Given Admin: 11/04/17 08:13 Dose: 150 mls/hr Infusion: 11/04/17 06:37 Dose: 0 mls/hr Admin: 11/04/17 00:30 Dose: 150 mls/hr Infusion: 11/04/17 00:30 Dose: 150 mls/hr Admin: 11/03/17 17:23 Dose: 150 mls/hr Infusion: 11/03/17 17:23 Dose: 0 mls/hr Admin: 11/03/17 12:01 Dose: 150 mls/hr Nicotine (Nicoderm) 21 mg TOPICAL DAILY@1000 JANEE Last Admin: 11/05/17 08:25 Dose: Not Given Admin: 11/04/17 09:58 Dose: Oxycodone/Acetaminophen (Percocet 10-325mg) 1 tab PO Q4-6HP PRN PRN Reason: PAIN LEVEL 3-6 Last Admin: 11/05/17 12:41 Dose: 1 tab Admin: 11/05/17 08:22 Dose: 1 tab Admin: 11/05/17 04:34 Dose: 1 tab Admin: 11/04/17 23:21 Dose: 1 tab Shift Summary 11/05/17 05:52 Shift Summary by Vanessa Sherwood&Ox4. VSS. 20 gauge to RFA with NS at 150 ml/hr. Up ad alda. Liver enzymes are trending down. 5 lap maria sites to abdomen with vandana and Tegaderm in place; no new drainage. Received order for 1 tablet Percocet 10/325mg Q4H prn pain; medicated x3 with PO medication; patient did not require Dilaudid for any breakthrough pain and has not requested pain medication as frequently. Will update at bedside. Initialized on 11/05/17 05:52 - END OF NOTE
--- NOTE | 2017-11-07 17:16 | Surgical Pathology Report ---
HISTOLOGY SPECIMEN MICROSCOPIC DIAGNOSIS SPECIMEN A - GALLBLADDER, CHOLECYSTECTOMY: -- CHRONIC CHOLECYSTITIS. -- REACTIVE CYSTIC DUCT LYMPH NODE. SPECIMEN B - LIVER, BIOPSY: -- ACUTE HEPATITIS, SEE COMMENT AND MICROSCOPIC DESCRIPTION. ([facility]:dj) COMMENT: Specimen B - The clinical history of elevated liver enzymes and positive hepatitis C antibody is noted. Hepatitis confirmatory testing is pending. The overall histologic features are consistent with acute hepatitis. No significant collagen fibrosis is present. While the findings may represent acute viral hepatitis, other causes of acute hepatitis including drug toxicity, toxin or alcohol exposure, and autoimmune hepatitis should be considered. Clinical and laboratory correlation is necessary. MICROSCOPIC DESCRIPTION Sections demonstrate two needle core biopsies of hepatic parenchyma which show marked lobular disarray. There is moderate to severe sinusoidal and lobular inflammation comprised of lymphocytes, plasma cells, and macrophages with scattered eosinophils and neutrophils. Frequent apoptotic hepatocytes as well as numerous swollen hepatocytes with feathery cytoplasmic degeneration are present. Kupffer cell hypertrophy and rare intercanalicular cholestasis is noted. No steatosis is present. The central veins are unremarkable. Some of the portal tracts are mildly expanded by lymphocyte-predominant inflammatory infiltrates and demonstrate intact bile ducts without proliferation or evidence of inflammatory damage. The portal tract vessels are unremarkable. Interface hepatitis is mild and focal. Trichrome stain is negative for significant collagen fibrosis. Reticulin stain highlights intact liver plate architecture with areas of collapse consistent with hepatocyte dropout. Iron stain is negative for stainable iron deposition. PAS with and without diastase is negative for pathologic cytoplasmic inclusions. PAS with diastase highlights Kupffer cells with cytoplasmic debris. All stains demonstrate adequate technical controls. ([facility]:djf) PROCEDURAL IMPRESSION Acute acalculous cholecystitis; hepatitis. GROSS DESCRIPTION Specimen A: Received in formalin labeled "A", is a 7.4 x 3.0 x 2.5 cm pink to red-rodriguez gallbladder. The serosal surface is smooth and glistening. There are two metal clips present including one on the cystic duct. The lumen contains viscous green-red fluid. Adjacent to the cystic duct there is a firm 0.8 cm in diameter pink-rodriguez lymph node. The mucosa is yellow to green-rodriguez and velvety. The wall is up to 0.4 cm thick. No stones or gross lesions are identified. [employer] sections submitted - one cassette. Specimen B: Received in formalin labeled "B", are two needle biopsy cores of rodriguez-brown tissue each 0.1 cm in diameter and 1.8 and 2.5 cm in length. Totally submitted - one cassette. ([facility]:djf) Electronically Signed by: Stephanie Chambers D.O.
--- NOTE | 2017-12-07 12:49 | Operative Note ---
DATE OF OPERATION: 11/03/2017 PREOPERATIVE DIAGNOSES: Acalculous cholecystitis and hepatitis. POSTOPERATIVE DIAGNOSES: Acalculous cholecystitis with hepatitis and early ascites. PROCEDURE: Laparoscopic cholecystectomy with liver biopsies. SURGEON: Rah Lin M.D. FINDINGS: An edematous dilated gallbladder with early ascites. The liver was slightly swollen but otherwise was unremarkable. DESCRIPTION OF PROCEDURE: Under general anesthesia, the patient's abdomen was prepped and draped in a sterile field. Timeout procedure was carried out as per protocol. A supraumbilical incision was made and Veress needle was inserted. Abdomen was insufflated with 3 liters of CO2. A 12 mm port was placed and the laparoscope was placed. The patient had ascites in the pelvis, bilateral gutters, and subphrenic areas. The gallbladder was edematous and dilated. The liver was enlarged but did not look remarkable otherwise. Under videoscopic guidance, a 12 mm port and two 5 mm ports were placed in the right subcostal region. The gallbladder was decompressed with a Weck needle. The gallbladder was grasped in position. Cystic duct and cystic artery branches were dissected back to the gallbladder. Cystic artery branches were clipped on the wall of the gallbladder and divided. This left the gallbladder only attached by the cystic duct. It was clipped with five clips close to the gallbladder and divided. The gallbladder was then from the infrahepatic bed using electrocautery and blunt dissection. It was placed in an Endopouch and retrieved. Bleeding in the bed was controlled with electrocautery. Irrigation was carried out. Two core needle biopsies of the right lobe of the liver were done transabdominally. The puncture sites of the liver biopsy were controlled with electrocautery. Because of the ascites it was elected not to place a KALI drain. There was no bleeding from the bed or the biopsy sites. CO2 was allowed to escape from the abdomen and the ports were removed. Fascia at the umbilicus was closed with 0 Vicryl. The skin incisions were closed with vandana. Tegaderm dressings were placed. The patient was awakened uneventfully, transferred to a bed and taken to the postanesthetic care unit in stable, satisfactory condition. LCS:mitul Job ID: [id number] Doc ID: [id number] Rah Lin M.D.
== END 2017-11-05 14:00 | disposition home or self-care (01) | DRG 418 ==
LOC: ED 21:12 → MEDSUR 11-02 00:24
PROVIDERS: ADMIT Family Medicine Adult Medicine; ATTEND Family Medicine Adult Medicine